=== PATIENT | female | born 1965 | race Caucasian/White ===

== ENCOUNTER 2016-12-22 23:22 | Emergency (ER) | payer BC, MEDICAID ==
[2016-12-23 02:08] VITALS: BP 113/61
[2016-12-23 02:19] LABS: Manual Entry Verification ABI0007; UR Preg Internal Control QC Line Present
[2016-12-23 02:22] LABS: Urine Bacteria 2+ (Absent); Urine Bilirubin Negative (Negative); Urine Glucose Negative (Negative); Urine Nitrite Positive (Negative)
[2016-12-23] MEDS ORDERED: Ciprofloxacin TAB* 500 MG PO ONE (02:42)
[2016-12-23] MEDS ORDERED: Phenazopyridine TAB* 100 MG PO ONE (02:42)
--- NOTE | 2016-12-23 02:50 | ED ---
GI/ HPI - HPI Summary HPI Summary: Pt here w/ urinary frequency, urgency and dysuria since this morning. H/o UTI's and feels the same. Reports when she gets these they come on hard and fast. Has been under a lot of stress past few days which she believes has been a trigger. Denies fever, chills, N/V/D, flank pain, vaginal irritation however reports she' s prone to yeast infections. - History of Current Complaint Chief Complaint: EDUrogenitalProblems Time Seen by Provider: 12/23/16 02:33 Stated Complaint: BLOOD IN URINE/FREQUENT URINATION Hx Obtained From: Patient Pain Intensity: 4 - Allergy/Home Medications Allergies/Adverse Reactions: Allergies Allergy/AdvReac Type Severity Reaction Status Date / Time Sulfa Drugs Allergy Hives Verified 12/22/16 23:44 SEASONAL ENVIRONMENTAL Allergy Unknown Uncoded 12/22/16 23:44 ALLERGIES Reaction Details PMH/Surg Hx/FS Hx/Imm Hx Previously Healthy: Yes Endocrine/Hematology History: Denies: Hx Diabetes, Autoimmune Disease Cardiovascular History: Denies: Hx Hypertension, Hx Pacemaker/ICD Respiratory History: Reports: Hx Sleep Apnea - VERY MILD History: Reports: Other Problems/Disorders - UTI's Denies: Hx Dialysis, Hx Kidney Infection, Hx Kidney Stones, Hx Renal Disease Sensory History: Reports: Hx Contacts or Glasses - READING GLASSES Denies: Hx Hearing Aid Opthamlomology History: Reports: Hx Contacts or Glasses - READING GLASSES Neurological History: Denies: Other Neuro Impairments/Disorders Psychiatric History: Reports: Hx Anxiety, Hx Depression, Hx Panic Disorder - Surgical History Surgery Procedure, Year, and Place: HYSTERECTOMY 03/18; CSECT 2000&1989 Hx Anesthesia Reactions: Yes - EXCESSIVE BLOOD LOSS - WITH CSECTION IN 2000 Infectious Disease History: No Infectious Disease History: Denies: History Other Infectious Disease, Traveled Outside the [place] in Last 30 Days - Family History Known Family History: Positive: None - Social History Occupation: Employed Full-time Lives: With Family Alcohol Use: Daily - glass of wine with dinner Alcohol Amount: gl. wine Hx Substance Use: No Substance Use Type: Reports: None Hx Tobacco Use: No Smoking Status (MU): Never Smoked Tobacco Review of Systems Constitutional: Negative Negative: Fever, Chills Cardiovascular: Negative Respiratory: Negative Gastrointestinal: Other - prepubetal pressure, urge to urinate Negative: Vomiting, Diarrhea, Nausea Positive: see HPI Neurological: Negative Negative: Headache Psychological: Other - see HPI - feels safe at home All Other Systems Reviewed And Are Negative: Yes Physical Exam Triage Information Reviewed: Yes Vital Signs On Initial Exam: Initial Vitals Temp Pulse Resp BP Pulse Ox 98.1 F 97 18 121/59 98 12/22/16 23:42 12/22/16 23:42 12/22/16 23:42 12/22/16 23:42 12/22/16 23:42 Vital Signs Reviewed: Yes Appearance: Positive: Well-Appearing, No Pain Distress, Well-Nourished Skin: Positive: Warm, Dry Head/Face: Positive: Normal Head/Face Inspection Eyes: Positive: Normal, EOMI, Conjunctiva Clear - anicteric sclera ENT: Positive: Hearing grossly normal, Pharynx normal - mucosa moist Respiratory/Lung Sounds: Positive: Clear to Auscultation, Breath Sounds Present. Negative: Rales, Rhonchi, Wheezes Cardiovascular: Positive: Normal, RRR, S1, S2 Abdomen Description: Positive: No Organomegaly, Soft, Other: - mild prepubetal TTP. Negative: CVA Tenderness (R), CVA Tenderness (L) Bowel Sounds: Positive: Present Pelvic Exam: Positive: other - deferred Musculoskeletal: Positive: Normal, Strength/ROM Intact Neurological: Positive: Normal, Sensory/Motor Intact, Alert, Oriented to Person Place, Time, CN Intact II-III Psychiatric: Positive: Normal Diagnostics - Vital Signs Vital Signs Temp Pulse Resp BP Pulse Ox 12/23/16 02:08 97.4 F 84 18 113/61 100 12/23/16 00:38 97.5 F 95 16 111/66 99 12/22/16 23:45 98.1 F 97 18 121/59 98 12/22/16 23:42 98.1 F 97 18 121/59 98 - Laboratory Lab Results: Lab Results 12/23/16 Range/Units 02:06 Urine Color Yellow Urine Appearance Cloudy Urine pH 6.0 (5-9) Ur Specific [place] 1.018 (1.010-1.030) Urine Protein 2+(100 mg/dl) H (Negative) Urine Ketones Trace H (Negative) Urine Blood 3+ H (Negative) Urine Nitrate Positive H (Negative) Urine Bilirubin Negative (Negative) Urine Urobilinogen Negative (Negative) Ur Leukocyte Esterase 3+ H (Negative) Urine WBC (Auto) 3+(>20/hpf) H (Absent) Urine RBC (Auto) 3+(>10/hpf) H (Absent) Ur Squamous Epith Cells Present H (Absent) Urine Bacteria 2+ H (Absent) Urine Glucose Negative (Negative) Urine Ascorbic Acid Not Reportable Urine Test Negative (Negative) Lab Statement: Any lab studies that have been ordered have been reviewed, and results considered in the medical decision making process. GIGU Course/Dx - Diagnoses Provider Diagnoses: UTI (urinary tract infection) Discharge - Discharge Plan Condition: Stable Disposition: HOME Prescriptions: Ciprofloxacin TAB* [Cipro 500 MG TAB*] 500 mg PO BID #13 tab Fluconazole 100 MG TAB* [Diflucan 100 MG TAB*] 150 mg PO DAILY #5 tab Phenazopyridine 200 mg (NF) [Pyridium 200 MG tab *] 200 mg PO TID PRN #6 tab PRN Reason: Pain Patient Education Materials: Urinary Tract Infection in Women (ED) Forms: *Work Release Referrals: Angie Nolen NP [Primary Care Provider] - Additional Instructions: Drink plenty of fluids, urinate as needed, rest Take medications as directed Follow-up with PCP *If you develop fever, chills, flank pain, vomiting, return to ED
--- NOTE | 2016-12-25 19:59 | PN ---
Progress Note - Progress Note Date of Service: 12/25/16 Note: Patient urine culture grew E coli >100,000. Patient placed on cipro which final culture shows is sensitive to. no further action indicated.
== END 2016-12-23 03:10 | disposition home or self-care (01) ==
LOC: ED 23:22
DX: N39.0 Urinary tract infection, site not specified (principal)
CPT/HCPCS: 81003; 81015; 81025; 87077; 87086; 87186; 99282; A9270-GY

== ENCOUNTER 2018-11-08 20:10 | Emergency (ER) | payer BC, MEDICAID ==
--- NOTE | 2018-11-08 23:37 | ED ---
Adult Trauma - HPI Summary HPI Summary: Patient complains of fall while standing in chair with subsequent left knee and left shoulder pain. Denies any other pain injury or symptoms. Patient ambulatory since fall. - History of Current Complaint Chief Complaint: EDExtremityLower Stated Complaint: KNEE SWOLLEN AFTER FALL PER PT Time Seen by Provider: 11/08/18 23:20 Hx Obtained From: Patient Mechanism of Injury: Fall Loss of Consciousness: no loss of consciousness Onset/Duration: Started Hours Ago Onset of Pain: Immediate Onset Severity: Mild Current Severity: Mild Pain Intensity: 2 Pain Scale Used: 0-10 Numeric Location: Extremities Character: Dull, Aching Aggravating Factor(s): Nothing Alleviating Factor(s): Nothing Associated Signs & Symptoms: Positive: Negative - Allergy/Home Medications Allergies/Adverse Reactions: Allergies Allergy/AdvReac Type Severity Reaction Status Date / Time MS Sulfa Drugs [Sulfa Drugs] Allergy Hives Verified 11/08/18 20:18 SEASONAL ENVIRONMENTAL Allergy Unknown Uncoded 11/08/18 20:18 ALLERGIES Reaction Details PMH/Surg Hx/FS Hx/Imm Hx Endocrine/Hematology History: Denies: Hx Diabetes Cardiovascular History: Denies: Hx Hypertension, Hx Pacemaker/ICD Respiratory History: Reports: Hx Sleep Apnea - VERY MILD History: Reports: Other Problems/Disorders - UTI's Denies: Hx Dialysis, Hx Kidney Infection, Hx Kidney Stones, Hx Renal Disease Sensory History: Reports: Hx Contacts or Glasses - READING GLASSES Denies: Hx Hearing Aid Opthamlomology History: Reports: Hx Contacts or Glasses - READING GLASSES Neurological History: Denies: Other Neuro Impairments/Disorders Psychiatric History: Reports: Hx Anxiety, Hx Depression, Hx Panic Disorder - Cancer History Hx Chemotherapy: No Hx Radiation Therapy: No - Surgical History Surgery Procedure, Year, and Place: HYSTERECTOMY 03/18; CSECT 2000&1989 Hx Anesthesia Reactions: Yes - EXCESSIVE BLOOD LOSS - WITH CSECTION IN 2000 Infectious Disease History: No Infectious Disease History: Denies: History Other Infectious Disease, Traveled Outside the [place] in Last 30 Days - Family History Known Family History: Positive: None - Social History Alcohol Use: Daily Alcohol Amount: gl. wine Hx Substance Use: No Substance Use Type: Reports: None Hx Tobacco Use: No Smoking Status (MU): Never Smoked Tobacco Review of Systems Constitutional: Negative Eyes: Negative ENT: Negative Cardiovascular: Negative Respiratory: Negative Gastrointestinal: Negative Genitourinary: Negative Musculoskeletal: Other Skin: Negative Neurological: Negative Psychological: Normal All Other Systems Reviewed And Are Negative: Yes Physical Exam - Summary Physical Exam Summary: No ecchymosis, deformity, erythema noted to left shoulder or left knee. Mild swelling to left knee. Full range of motion of left knee. Mild pain with palpation of left knee. PMS intact distally. Normal range of motion of left upper extremity. PMS intact distally. Triage Information Reviewed: Yes Vital Signs On Initial Exam: Initial Vitals Temp Pulse Resp BP Pulse Ox 97.1 F 94 15 137/74 97 11/08/18 20:16 11/08/18 20:16 11/08/18 20:16 11/08/18 20:16 11/08/18 20:16 Vital Signs Reviewed: Yes Appearance: Positive: Well-Appearing Skin: Positive: Warm, Skin Color Reflects Adequate Perfusion Head/Face: Positive: Normal Head/Face Inspection Eyes: Positive: Normal ENT: Positive: Normal ENT inspection Dental: Negative: Dental Fracture @, Bleeding Neck: Positive: Supple Respiratory/Lung Sounds: Positive: Clear to Auscultation Cardiovascular: Positive: Normal Abdomen Description: Positive: Nontender Musculoskeletal: Positive: Normal Neurological: Positive: Normal Psychiatric: Positive: Normal AVPU Assessment: Alert - [place] Coma Scale Best Eye Response: 4 - Spontaneous Best Motor Response: 6 - Obeys Commands Best Verbal Response: 5 - Oriented Coma Scale Total: 15 Diagnostics - Vital Signs Vital Signs Temp Pulse Resp BP Pulse Ox 11/08/18 22:37 98.5 F 83 20 118/65 95 11/08/18 20:16 97.1 F 94 15 137/74 97 - Laboratory Lab Statement: Any lab studies that have been ordered have been reviewed, and results considered in the medical decision making process. Adult Trauma Course/Dx - Course Course Of Treatment: Patient complains of fall while standing in chair with subsequent left knee and left shoulder pain. Denies any other pain injury or symptoms. Patient ambulatory since fall. Vital signs within normal limits. X- ray left knee and left shoulder negative for fracture. - Diagnoses Provider Diagnoses: Fall, Knee pain, Acute shoulder pain Discharge - Sign-Out/Discharge Documenting (check all that apply): Patient Departure Patient Received Moderate/Deep Sedation with Procedure: No - Discharge Plan Condition: Stable Disposition: HOME Patient Education Materials: Knee Pain (ED), Shoulder Pain (ED) Referrals: Hanny Rojas NP [Primary Care Provider] - Slade Rothman MD [Medical Doctor] - Additional Instructions: Alternate ibuprofen 600 mg with Tylenol 650 mg every 3 hours for 3 days if necessary for pain. If symptoms continue more than 1 week follow-up with orthopedics Dr. Rothman for further evaluation of right shoulder and right knee pain - Billing Disposition and Condition Condition: STABLE Disposition: Home
[2018-11-08] MEDS ORDERED: oxyCODONE TAB* 5 MG TAB PO ONE (23:51)
[2018-11-09 00:13] VITALS: BP 132/76
== END 2018-11-09 00:12 | disposition home or self-care (01) ==
LOC: ED 20:10
DX: M25.562 Pain in left knee (principal); M25.462 Effusion, left knee; M25.512 Pain in left shoulder; W17.89XA Other fall from one level to another, initial encounter; Y92.9 Unspecified place or not applicable; Z88.2 Allergy status to sulfonamides
CPT/HCPCS: 99282; A9270-GY